=== PATIENT | female | born 1985 | race Two or more races ===

== ENCOUNTER 2018-06-27 16:00 | Emergency (ER) | payer OTHER ==
[~2018-06-27] VITALS: Ht 165.1 cm; Wt 63.5 kg
[2018-06-27] MEDS ORDERED: CIPRO100 MG PO (16:10)
== END 2018-06-27 18:28 | disposition home or self-care (01) ==
LOC: ER 16:00
DX: H60.8X2 Other otitis externa, left ear (principal)